=== PATIENT | female | born 1955 | race Caucasian/White ===

== ENCOUNTER 2017-08-03 21:58 | Emergency (ER) | payer BC ==
[2017-08-03] MEDS ORDERED: CLINDAMYCIN HCL 300 MG CAPSULE PO ONE (22:09)
--- NOTE | 2017-08-03 22:11 | PDOC ---
History of Present Illness - General History Source: Patient Exam Limitations: No Limitations - History of Present Illness Initial Comments: 08/03/17 22:12 The patient is a 61 year old female, with a significant past medical history of carole thyroiditis, labile blood pressure, and psoriatic arthritis (in remission), who presents to the emergency department complaining of pain and warmth to the middle toe on the left foot s/p stubbing her toe. The patient reports that she may have stubbed her toe in the past few days but does not recall when she actually stubbed her toe. The patient reports that earlier today when going to the gym she noted a general discomfort in her sneakers and noticed her middle toe was black and blue, and all her toes on the left foot were feeling warm. She denies recent pedicures. She denies recent nausea, vomiting, or dizziness. She denies chest pain or shortness of breath. <Yemi Gayle - Last Filed: 08/03/17 22:12> <Mindi Barraza - Last Filed: 08/03/17 23:34> - General Chief Complaint: Pain Stated Complaint: PAIN TO LEFT MIDDLE TOE Time Seen by Provider: 08/03/17 22:08 Past History <Yemi Gayle - Last Filed: 08/03/17 22:12> <Mindi Barraza - Last Filed: 08/03/17 23:34> - Past Medical History Allergies/Adverse Reactions: Allergies Allergy/AdvReac Type Severity Reaction Status Date / Time meloxicam [From Mobic] AdvReac Verified 08/03/17 22:01 Penicillins AdvReac Verified 08/03/17 22:00 Sulfa (Sulfonamide AdvReac Verified 08/03/17 22:01 Antibiotics) Home Medications: Ambulatory Orders Acetaminophen W/ Codeine #3 [Tylenol # 3 -] 2 tab PO Q8H #30 tablet MDD 6 Clindamycin [Cleocin -] 300 mg PO Q6HPO #20 capsule 08/03/17 Clonazepam [KlonoPIN] 0.5 mg PO PRN 08/03/17 Levothyroxine Sodium [Synthroid] 112 mcg PO DAILY 08/03/17 Nebivolol HCl [Bystolic] 2.5 mg PO DAILY 08/03/17 Oxycodone HCl/Acetaminophen [Percocet 5-325 mg Tablet] 1 tab PO Q6H #20 tablet MDD 4 08/03/17 Oxycodone HCl/Acetaminophen [Percocet 5/325 -] 1 tab PO Q6H #20 tablet MDD 4 11/19 Review of Systems - Review of Systems Comments:: 08/03/17 22:18 GENERAL/CONSTITUTIONAL: No fever or chills. No weakness. HEAD, EYES, EARS, NOSE AND THROAT: No change in vision. No ear pain or discharge. No sore throat. CARDIOVASCULAR: No chest pain or shortness of breath. RESPIRATORY: No cough, wheezing, or hemoptysis. GASTROINTESTINAL: No nausea, vomiting, diarrhea or constipation. GENITOURINARY: No dysuria, frequency, or change in urination. MUSCULOSKELETAL: +Pain to the middle toe on the left lower extremity. No neck or back pain. SKIN: No rash NEUROLOGIC: No headache, vertigo, loss of consciousness, or change in strength/ sensation. ENDOCRINE: No increased thirst. No abnormal weight change. HEMATOLOGIC/LYMPHATIC: No anemia, easy bleeding, or history of blood clots. ALLERGIC/IMMUNOLOGIC: No hives or skin allergy. <Yemi Gayle - Last Filed: 08/03/17 22:12> *Physical Exam - Physical Exam Comments: 08/03/17 22:19 GENERAL: Awake, alert, and fully oriented, in no acute distress HEAD: No signs of trauma EYES: PERRLA, EOMI, sclera anicteric, conjunctiva clear ENT: Auricles normal inspection, hearing grossly normal, nares patent, oropharynx clear without exudates. Moist mucosa NECK: Normal ROM, supple, no lymphadenopathy, JVD, or masses LUNGS: Breath sounds equal, clear to auscultation bilaterally. No wheezes, and no crackles HEART: Regular rate and rhythm, normal S1 and S2, no murmurs, rubs or gallops ABDOMEN: Soft, nontender, normoactive bowel sounds. No guarding, no rebound. No masses EXTREMITIES: +Contusion to the middle toe on the left lower extremity. +Warmth to all toes on the left lower extremity. +Tenderness middle toe on the LLE. NEUROLOGICAL: Cranial nerves II through XII grossly intact. Normal speech, normal gait SKIN: Warm, Dry, normal turgor, no rashes or lesions noted. <Gayle,Yemi - Last Filed: 08/03/17 22:12> Medical Decision Making - Medical Decision Making 08/03/17 22:10 Pt comes with painful stubbed toe. Doesn't know when it happened. Left middle toe is swollen at the distal tip and painful throughout. Pt has no fractures seen on XRAY. Toes are warm on the left foot, compared to the right side. Likely callulitis of the toe. Pt has no DM. SHe has HTN and states that she skipped her bystolic for [place] and then ate salty Lox and other foods and finally took one bystolic in the evening before arriving here. BP is elevated as a result. 08/03/17 23:30 Pt will be given 50mg HCTZ for BP, as she is refusing any other meds. She has no other complaints. Pt was treated with clindamycin dose in the ER and she will go home with a 5 day supply for her toe. 08/03/17 23:34 toe lisa taped. <Mindi Barraza - Last Filed: 08/03/17 23:34> *DC/Admit/Observation/Transfer - Attestations Scribe Attestion: 08/03/17 22:22 Documentation prepared by Yemi Gayle, acting as medical liaison for Mindi Barraza MD. <Yemi Gayle - Last Filed: 08/03/17 22:12> - Discharge Dispostion Admit: No <Mindi Barraza - Last Filed: 08/03/17 23:34> Diagnosis at time of Disposition: Toe contusion, Toe infection - Discharge Dispostion Disposition: HOME Condition at time of disposition: Good - Prescriptions Prescriptions: Clindamycin [Cleocin -] 300 mg PO Q6HPO #20 capsule Oxycodone HCl/Acetaminophen [Percocet 5/325 -] 1 tab PO Q6H #20 tablet MDD 4 Oxycodone HCl/Acetaminophen [Percocet 5-325 mg Tablet] 1 tab PO Q6H #20 tablet MDD 4 Acetaminophen W/ Codeine #3 [Tylenol # 3 -] 2 tab PO Q8H #30 tablet MDD 6 - Patient Instructions Printed Discharge Instructions: DI for Cellulitis -- Adult, DI for Contusion - Post Discharge Activity Forms/Work/School Notes: Back to Work
[2017-08-03] MEDS ORDERED: HYDROCHLOROTHIAZIDE 50 MG TABLET PO ONE (22:38)
[2017-08-03] MEDS ORDERED: HYDROCHLOROTHIAZIDE 25 MG TABLET (FP) ONE (23:01)
[2017-08-03] MEDS ORDERED: CLINDAMYCIN HCL 150 MG CAPSULE (FP) ONE (23:01)
[2017-08-03 23:31] VITALS: BP 178/102; PULSE 82; TEMP 97.8; BMI 33.8
== END 2017-08-03 23:33 | disposition home or self-care (01) ==
LOC: FER 21:58
DX: S90.122A Contusion of left lesser toe(s) without damage to nail, initial encounter (principal); W22.01XA Walked into wall, initial encounter; Y93.89 Activity, other specified; Y92.9 Unspecified place or not applicable; B99.9 Unspecified infectious disease; E06.3 Autoimmune thyroiditis
CPT/HCPCS: 73660-TC; 99281-25